=== PATIENT | female | born 1975 | race Caucasian/White ===

== ENCOUNTER 2023-03-25 19:03 | Emergency (ER) | payer SELFPAY ==
[2023-03-25 19:07] VITALS: BP 151/83; PULSE 91; RESP 18; TEMP 36.6; O2SAT 100; BMI 39.4
--- NOTE | 2023-03-25 19:10 | ED.DENTAL ---
HPI - Dental/Oral General Chief complaint: Dental/Oral Stated complaint: tooth pain Time Seen by Provider: 03/25/23 19:28 Source: patient Mode of arrival: ambulatory Limitations: no limitations History of Present Illness HPI Narrative: See additional provider note on 03/25/2023 Related Data Previous Rx's Medication Instructions Recorded oxycodone 5 mg tablet 5 mg PO BID PRN pain 5 days #10 03/25/23 tabs Allergies Allergy/AdvReac Type Severity Reaction Status Date / Time ketorolac [From Toradol] Allergy Rash Verified 03/25/23 20:38 levofloxacin [From Levaquin] Allergy Rash Verified 03/25/23 19:15 [facility] Social History Social History Advance Directives: No Advance Directives Information Provided: No Physical Exam Vital Signs: Vital Signs: Last Vital Signs Temp 98 F 03/25/23 19:07 Pulse 91 03/25/23 19:07 Resp 18 03/25/23 19:07 BP 151/83 H 03/25/23 19:07 Pulse Ox 100 03/25/23 19:07 O2 Del Method Room Air 03/25/23 19:07 BMI result Body Mass Index 39.4 Course Course Course Narrative: This is an RME: Additional HPI, ROS, PE not included below will be deferred to primary provider. Patient is a 47-year-old female who presents emergency department for evaluation of dental fracture to right pre molar up to the gum line, #5. reportedly occurred last night while eating. has had chronic dental caries, this tooth included, needs extraction. She has trialed acetaminophen and benzocaine without significant improvement. Pain is severe 10/10, cold sensitivity. Discharge Plan Discharge Clinical Impression: Pain, dental, Fracture of tooth Patient Disposition: Home, Self-Care Instructions: Toothache (ED), Tooth Extraction (DC) Additional Instructions: Take your medications as prescribed. If you were prescribed antibiotics today, it is important that you take your medication to their entirety, do not skip any doses, do not finish them early. Follow-up with your primary care provider this week. Return to the emergency department with new or worsening symptoms. Such as fevers, chills, chest pain, shortness of breath, nausea, vomiting, dizziness, headache, vision changes, lethargy In case of emergency call 911 A narcotic has been sent to your pharmacy please take this as prescribed. Do not take more than the prescribed dose. Narcotic medications can cause addiction. Please do not mix them with alcohol. Do not take them while driving or operating machinery. Do not take them with any other narcotics. Do not share them with friends or family. They can cause constipation. Take them only for severe pain. Prescriptions: New oxycodone 5 mg tablet 5 mg PO BID PRN (Reason: pain) 5 Days Qty: 10 0RF Rx Instructions: Partial Fill upon patient request. Referrals: Physician,Unknown J [Primary Care Provider] - 3 days Stand Alone Forms: Work/School Release
--- NOTE | 2023-03-25 20:03 | ED_ITS ---
HPI - General Adult General Chief complaint: Dental/Oral Stated complaint: tooth pain Time Seen by Provider: 03/25/23 19:28 Source: patient, RN notes reviewed and old records reviewed Mode of arrival: ambulatory Limitations: no limitations History of Present Illness HPI narrative: Patient is a 47-year-old female without significant PMH presenting with tooth pain secondary to partial dental fracture she states tooth has been broken for a while but it broke more. She was supposed to have the tooth extracted but did not get the procedure. Also reports her filling [facility]. She also states there is a bump on the gingiva above the affected tooth and thinks it might be infected. Tolerating liquids and solids well. Denies fever, chills, cp, sob, drooling, changes in voice [place] she has a dentist and oral surgeon Related Data Previous Rx's Medication Instructions Recorded oxycodone 5 mg tablet 5 mg PO BID PRN pain 5 days #10 03/25/23 tabs Allergies Allergy/AdvReac Type Severity Reaction Status Date / Time ketorolac [From Toradol] Allergy Rash Verified 03/25/23 20:38 levofloxacin [From Levaquin] Allergy Rash Verified 03/25/23 19:15 Review of Systems Review of Systems: Constitutional : No Weight loss, No Fever, No Chills, No Fatigue, No Malaise ENT/Mouth : + tooth pain, No sore throat, No Rhinorrhea Eyes: No Eye Pain, No Swelling, No Redness Cardiovascular : No Chest Pain, No SOB, No Dyspnea on Exertion, No Orthopnea, No Edema, No Palpitations Respiratory : No Cough, No Sputum, No Wheezing Gastrointestinal : No Nausea, No Vomiting, No Diarrhea, No Constipation, No abdominal Pain, No Hematochezia, No Melena Genitourinary : No Dysuria, No Urinary Frequency, No Hematuria, Musculoskeletal : No joint pain, No Myalgias, No Joint Swelling Skin : No Skin Lesions, No rash Neuro : No Weakness, No Numbness, No Dizziness, No Headache All other systems reviewed and are negative Yes all other systems are reviewed and are negative PMFSH Past Medical History Attestation statement: The following information was validated with the patient. Source: old records reviewed and nursing notes reviewed Social History Social History Advance Directives: No Advance Directives Information Provided: No Physical Exam ED Vital Signs: Vital Signs - 24 hr 03/25/23 19:07 Temperature 98 F Pulse Rate 91 Respiratory Rate 18 Blood Pressure 151/83 H Pulse Oximetry 100 Oxygen Delivery Method Room Air BMI result Body Mass Index 39.4 vss Appearance: Alert.? Oriented X3.? No acute distress.? Head: Normocephalic, atraumatic, no step-offs or deformities Eyes: Pupils equal, round and reactive to light.? ENT: Pharynx normal.+ fractured tooth to right upper premolar and right molar w/ damaged filling and ttp. No abscess visualized. Patient speaking in full sentences and controlling secretions well. Neck: Normal inspection.? Neck supple.? CVS: Normal heart rate and rhythm.? Pulses normal.? Respiratory: No respiratory distress.? Breath sounds normal.? Abdomen: Soft and nontender.? Skin: Skin warm and dry.? Normal skin color.? Normal skin turgor.? Extremities: No lower extremity edema.? No calf ttp. 5/5 strength to bilateral upper and lower extremities Back: No midline tenderness, no C-spine tenderness, full range of motion, no CVA tenderness bilaterally Neuro: Oriented X 3.? No motor deficit.? No sensory deficit. CN 2-12 intact Course Reevaluation(s) Reevaluation #1: No indication for imaging. Patient will get 1 dose of pain meds went over safe narcotic use. Patient has an oral surgeon back home she says she is traveling back home as soon as possible so she can get seen. Educated patient on diagnosis and treatment plan, answered all question, patient verbalizes understanding. At this time patient will be discharged home, advised to return with new or worsening symptoms. Educated on worrisome signs and symptoms and when to return. At this time I feel comfortable discharge home. Time: 20:58 Medical Decision Making Medical Decision Making MDM Narrative: 47-year-old female presenting with tooth pain secondary to partial tooth fracture PE w/ Pharynx normal.+ fractured tooth to right upper premolar and right molar w/ damaged filling and ttp. No abscess visualized. Patient speaking in full sentences and controlling secretions well. Likely dental fracture vs. Nerve pain secondary to dental fracture. Likely a chipped feeling.. Unlikely threat to airway, dental abscess. No signs of cellulitis and mouth, necrosis. Plan - patient states she has an allergy to Toradol can not give Toradol. States she can only take Percocet. Does not want morphine. I told her I would feel more comfortable with oxycodone. Patient agreeable. Differential Diagnosis Differential Diagnoses: The differential diagnosis associated with the presentation includes Likely dental fracture vs. Nerve pain secondary to dental fracture. Likely a chipped feeling.. Unlikely threat to airway, dental abscess. No signs of cellulitis and mouth, necrosis. Admission/Observation Consideration of admission/observation: Escalation of care including admission/observation considered Unlikely Tests considered The following testing was considered but not selected: No indication Critical Care Time Critical Care Time Critical Care Time: No Discharge Plan Discharge Clinical Impression: Pain, dental, Fracture of tooth Patient Disposition: Home, Self-Care Instructions: Toothache (ED), Tooth Extraction (DC) Additional Instructions: Take your medications as prescribed. If you were prescribed antibiotics today, it is important that you take your medication to their entirety, do not skip any doses, do not finish them early. Follow-up with your primary care provider this week. Return to the emergency department with new or worsening symptoms. Such as fevers, chills, chest pain, shortness of breath, nausea, vomiting, dizziness, headache, vision changes, lethargy In case of emergency call 911 A narcotic has been sent to your pharmacy please take this as prescribed. Do not take more than the prescribed dose. Narcotic medications can cause addiction. Please do not mix them with alcohol. Do not take them while driving or operating machinery. Do not take them with any other narcotics. Do not share them with friends or family. They can cause constipation. Take them only for severe pain. Prescriptions: New oxycodone 5 mg tablet 5 mg PO BID PRN (Reason: pain) 5 Days Qty: 10 0RF Rx Instructions: Partial Fill upon patient request. Referrals: Physician,Unknown J [Primary Care Provider] - 3 days Stand Alone Forms: Work/School Release
[2023-03-25] MEDS: oxyCODONE HCl Immed Release 5 MG TABLET PO (20:56)
[2023-03-25] MEDS: Acetaminophen 325 MG TABLET 650 MG PO (20:56)
== END 2023-03-25 21:18 | disposition home or self-care (01) ==
PROVIDERS: Emergency Provider Internal Medicine
DX: K08.539 Fractured dental restorative material, unspecified (principal); K08.89 Other specified disorders of teeth and supporting structures; K02.9 Dental caries, unspecified
CPT/HCPCS: 99283

== ENCOUNTER 2023-04-19 16:44 | Emergency (ER) | payer SELFPAY ==
[2023-04-19 17:00] VITALS: BP 158/98; PULSE 93; RESP 20; TEMP 36.8; O2SAT 100; BMI 39.6
--- NOTE | 2023-04-19 17:02 | ED.DENTAL ---
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 Seen here 03/25/23 for same and was given oxycodone. Patient reports that she lives in [place] but is here visiting family and has plans to return after the holiday. She did see a dentist this month and they recommended she have the tooth removed. She does have anxiety with dentists and has been delaying this until she returns to [place]. No difficulty swallowing/breathing/fevers/chills. Taking tylenol with no relief in pain Related Data Previous Rx's Medication Instructions Recorded amoxicillin 875 mg-potassium 1 tab PO BID 7 days #14 tabs 03/25/23 clavulanate 125 mg tablet oxycodone 5 mg tablet 5 mg PO BID PRN pain 5 days #10 03/25/23 tabs oxycodone 5 mg tablet 5 mg PO Q8H PRN pain #8 tabs 04/19/23 Allergies Allergy/AdvReac Type Severity Reaction Status Date / Time ketorolac [From Toradol] Allergy Rash Verified 04/19/23 17:00 levofloxacin [From Levaquin] Allergy Rash Verified 04/19/23 17:00 Review of Systems Review of Systems: Yes all other systems are reviewed and are negative Constitutional: Constitutional: Reports no additional constitutional complaints, Denies body ache(s), Denies chills, Denies fever(s), Denies headache(s) and Denies weakness Eyes: Eyes: Reports no additional eye complaints and Denies change in vision ENT: Reports system reviewed and no additional complaints, except as documented, Reports dental pain, Denies dizziness, Denies headache(s), Denies nasal congestion, Denies nasal discharge and Denies neck pain Cardiovascular: Cardiovascular: Reports no additional cardiovascular complaints, Denies chest pain, Denies leg edema and Denies dyspnea Respiratory: Respiratory: Reports no additional respiratory complaints, Denies cough and Denies dyspnea Gastrointestinal: Gastrointestinal: Reports no additional gastrointestinal complaints, Denies abdominal pain, Denies diarrhea, Denies nausea and Denies vomiting Genitourinary: Genitourinary: Reports no additional female genitourinary complaints and Denies urinary incontinence Musculoskeletal: Musculoskeletal: Reports no additional musculoskeletal complaints, Denies back pain, Denies arthralgias, Denies joint swelling, Denies neck pain, Denies numbness and Denies tingling Integumentary/Breasts: Skin/Breast: Reports system reviewed and no additional complaints, except as docu and Denies rash Neurologic: Reports system reviewed and no additional complaints, except as documented, Denies Abnormal speech present, Denies dizziness, Denies headache(s), Denies numbness, Denies tingling and Denies weakness [facility] Past Medical History Attestation statement: The following information was validated with the patient. Source: old records reviewed and nursing notes reviewed Social History Advance Directives: No Advance Directives Information Provided: No Physical Exam Vital Signs: Vital Signs: Last Vital Signs Temp 98.2 F 04/19/23 17:00 Pulse 93 04/19/23 17:00 Resp 20 04/19/23 17:00 BP 158/98 H 04/19/23 17:00 Pulse Ox 100 04/19/23 17:00 O2 Del Method Room Air 04/19/23 17:00 BMI result Body Mass Index 39.6 Const: General: cooperative, healthy appearing, comfortable and no acute distress Orientation/consciousness: patient oriented x3 Limitations: no limitations HEENT: Other: No trismus Head: Yes normal to inspection Ears: hearing grossly normal bilaterally and TM's normal bilaterally General nose exam: Normal external nose present Face and sinus: Yes normal facial exam Mouth: Normal oral and palatal mucosa present Teeth image: 1. Broken tooth-exposed nerve root-no swelling or redness Throat: Yes posterior oropharynx normal Eyes: General: appearance normal, both eyes and all related structures Pupils: Equal, round and reactive pupils present Neck: Neck: Yes normal visual inspection Chest: Chest palpation & inspection: normal inspection of the chest Resp: Effort & Inspection: normal respiratory effort Auscultation: clear to auscultation bilaterally Cardio: Rate: regular rate Rhythm: regular rhythm Peripheral pulses: Peripheral pulses 2+ throughout GI: Inspection: Yes normal to inspection Palpation (GI): Soft to palpation and nontender Auscultation: normal bowel sounds Back/Spine/Pelvis: Thoracic/Lumbar Spine: thoracic and lumbar spine normal to inspection Skin: General skin exam: no rashes or lesions noted Neuro: General: patient oriented x3, no focal motor deficits and normal sensation to monofilament Cranial nerves: Yes Equal, round and reactive pupils present Cognition (Neuro): normal cognition Speech: No Abnormal speech present Gait exam (Neuro): Normal gait present Motor exam (neuro): 5/5 motor strength present throughout Extrem: General: Yes normal to inspection Course Course Course Narrative: 1829-I did review the [employer]S ORDER AND STOCK CLERK and there were no prescriptions seen prior to discharge. I then received a call from the pharmacist on [facility] who tells me the patient has had multiple prescriptions for narcotics but underneath a different last name (kim). She last picked up 21 tablets of oxycodone 5mg in [place], [place] at a [facility]. She has multiple listed addresses ([place], [place]). She also did not want to use her insurance card at the pharmacy. I spoke with the pharmacist and we are concerned the patient may be using multiple hospitals for narcotic use. Therefore I asked the pharmacist to not fill the prescription. Reevaluation(s) Reevaluation #1: 1839-The patients husbands called me asking me to send the prescription to [facility] because he went to [facility] on [facility] and the prescription was not sent there. I explained to him my concern over the patients narcotic use. I also made it clear to the patient that the pharmacist at [facility] did receive the medication and told him in person that they would not be filling it. He asked me if they would have trouble with us moving forward. I explained to him we would not be prescribing any narcotic pain medication moving forward. 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 Seen here 03/25/23 for same and was given oxycodone. Patient reports that she lives in [place] but is here visiting family and has plans to return after the holiday. She did see a dentist this month and they recommended she have the tooth removed. She does have anxiety with dentists and has been delaying this until she returns to [place]. No difficulty swallowing/breathing/fevers/chills. Taking tylenol with no relief in pain SEE PE findings No trismus on exam. No evidence of dental abscess, facial cellulitis to necessitate antibiotics. Patient provided with short supply pain medication. Reviewed worrisome signs and symptoms of when to return to the emergency room. Comfortable plan for discharge home. Differential Diagnosis Differential Diagnoses: The differential diagnosis associated with the presentation includes Low concern for dental abscess, facial cellulitis, Julio's angina Admission/Observation Consideration of admission/observation: Escalation of care including admission/observation considered See discussion above Independent Historian Clinical information obtained from an independent historian. History obtained from or confirmed by: Spouse Tests considered The following testing was considered but not selected: No evidence of facial cellulitis, Julio's angina suggesting need for CT facial bones Prescription Management I considered prescription management with: Antibiotic see discussion above Discharge Plan Discharge Clinical Impression: Pain, dental Patient Disposition: Home, Self-Care Instructions: Toothache (ED) Additional Instructions: Salt water gargles Topical oragel as needed Tylenol for pain as needed Prescriptions: New oxycodone 5 mg tablet 5 mg PO Q8H PRN (Reason: pain) Qty: 8 0RF Rx Instructions: Partial Fill upon patient request. Continued oxycodone 5 mg tablet 5 mg PO BID PRN (Reason: pain) 5 Days Qty: 10 0RF Rx Instructions: Partial Fill upon patient request. No Action amoxicillin-pot clavulanate 875-125 mg tablet 1 tab PO BID 7 Days Qty: 14 0RF Referrals: ED Physician,Generic [Physician] - 1 week Interventions: ED Discharge Assessment Last Done: 04/19/23 17:17 Discharge Date/Time: 04/19/23 17:17
[2023-04-19] MEDS: oxyCODONE HCl Immed Release 5 MG TABLET PO (17:15)
== END 2023-04-19 17:17 | disposition home or self-care (01) ==
PROVIDERS: Emergency Provider Emergency Medicine
DX: K08.89 Other specified disorders of teeth and supporting structures (principal); I10 Essential (primary) hypertension
CPT/HCPCS: 99283